=== PATIENT | female | born 1955 | race Caucasian/White ===

== ENCOUNTER 2021-01-11 08:51 | Emergency (ER) | payer OTHER ==
[~2021-01-11] VITALS: Ht 175.3 cm; Wt 74.8 kg
[2021-01-11] MEDS ORDERED: PRED20TA3 PO (10:24)
[2021-01-11] MEDS ORDERED: DICL20GE TP (10:24)
[2021-01-11] MEDS ORDERED: SOLU-MEDROL 125MG VIAL IM SCH (10:30)
[2021-01-11 10:56] VITALS: BP 128/74
== END 2021-01-11 11:00 | disposition home or self-care (01) ==
LOC: EDH 08:51
DX: M25.462 Effusion, left knee (principal); M25.562 Pain in left knee; Z88.0 Allergy status to penicillin; Z79.1 Long term (current) use of non-steroidal anti-inflammatories (NSAID); Z79.52 Long term (current) use of systemic steroids
CPT/HCPCS: 73562

== ENCOUNTER → 2024-11-29 | Outpatient (CLI) | payer MEDICARE ==
[~2024-11-29] MED LIST: DICL20GE TP; PRED20TA3 PO
--- NOTE | 2024-11-30 08:23 | HMCIMG ---
CLINICAL INDICATION: Age-related osteoporosis without current pathological fracture COMPARISON: None available TECHNIQUE: Bone densitometry is performed of the lumbar spine and left hip. FINDINGS: Total BMD of lumbar spine is 0.827 g/cm2 with a T-score of -2.0 and Z-score is 0.0. Total BMD of left hip is 0.724 g/cm2 with a T-score of -1.8 and Z-score is -0.4. FRAX SCORE: The 10 year fracture risk for a major osteoporotic fracture and hip fracture 20% IMPRESSION: 1. Osteopenia of the left hip and lumbar spine 2. I would recommend follow-up in 13 months World Health Organization criteria for BMD interpretation classify patients as Normal (T-score at or above -1.0), Osteopenic (T-score between -1.0 and -2.5), or Osteoporotic (T-score at or below -2.5). FRAX SCORE: A. All treatment decisions require clinical judgment and consideration of individual patient factors, including patient preferences, comorbidities, previous drug use, risk factors not captured in the FRAX model (e.g., frailty, falls, vitamin D deficiency, increased bone turnover, interval significant decline in bone density) and possible [id number]-estimation of fracture risk by FRAX. B. In addition, the NOF Guide recommends that FDA-approved medical therapies be considered in postmenopausal women and men age greater than or equal to 50 years with a: i. Hip or vertebral (clinical or morphometric) fracture. ii. T-score of less than or equal to -2.5 at the spine or hip. iii. Ten-year fracture probability by FRAX of greater than or equal to 3% for hip fracture of greater than or equal to 20% for major osteoporotic fracture.
== END | disposition home or self-care (01) ==
LOC: RAH 09:39
PROVIDERS: ATTEND Nurse Practitioner Family
DX: Z13.820 Encounter for screening for osteoporosis (principal); M84.68XD Pathological fracture in other disease, other site, subsequent encounter for fracture with routine healing; M81.0 Age-related osteoporosis without current pathological fracture; M85.89 Other specified disorders of bone density and structure, multiple sites
CPT/HCPCS: 77080